=== PATIENT | male | born 1935 | race Caucasian/White ===

== ENCOUNTER → 2023-10-09 | Outpatient (REF) | payer OTHER ==
[2023-10-09 18:37] LABS: PERCENT SATURATION 27.8 % (19.7-50.0)
== END ==
LOC: M LAB REF 17:06
PROVIDERS: ATTEND Internal Medicine Nephrology
DX: D50.9 Iron deficiency anemia, unspecified (principal)

== ENCOUNTER 2023-10-22 21:06 | Emergency (ER) | payer MEDICARE ==
[~2023-10-22] VITALS: Ht 167.6 cm; Wt 62.5 kg
[2023-10-22 21:44] LABS: BASO % 0.3 % (0.0-1.0); EOS # 0.2 10^3/uL (0.0-0.5); EOS % 3.8 % (0.0-3.0); HEMATOCRIT 34.8 % (42.0-52.0); HEMOGLOBIN 11.3 g/dl (13.5-17.5); LYMPH # 1.6 10^3/uL (1.5-5.0); LYMPH % 25.7 % (24.0-44.0); MEAN CORPUSCULAR HEMOGLOBIN 32.2 pg (27.0-33.0); MEAN CORPUSCULAR HGB CONC 32.5 g/dl (32.0-36.5); MEAN CORPUSCULAR VOLUME 99.1 fl (80.0-96.0); MONO # 0.7 10^3/uL (0.0-0.8); MONO % 12.1 % (2.0-8.0); NEUTROPHILS # 3.5 10^3/uL (1.5-8.5); NEUTROPHILS % 57.8 % (36.0-66.0); PLATELET COUNT, AUTOMATED 324 10^3/uL (150-450); RED BLOOD COUNT 3.51 10^6/uL (4.30-6.10)
[2023-10-22 22:12] LABS: LIPASE 117 U/L (12-53)
[2023-10-22 22:14] LABS: ALBUMIN 3.6 G/DL (3.2-5.2); ALKALINE PHOSPHATASE 48 U/L (46-116); ALT/SGPT 37 U/L (7.0-40); AST/SGOT 46 U/L (<34); BILIRUBIN,DIRECT 0.2 MG/DL (<0.4); BILIRUBIN,TOTAL 0.4 MG/DL (0.3-1.2); BLOOD UREA NITROGEN 35 MG/DL (9-23); CALCIUM LEVEL 8.9 MG/DL (8.3-10.6); CARBON DIOXIDE LEVEL 24 MMOL/L (20-31); CHLORIDE LEVEL 107 MMOL/L (98-107); CREATININE FOR GFR 1.26 MG/DL (0.70-1.30); GLOMERULAR FILTRATION RATE 57.9 (>35); GLUCOSE, FASTING 115 MG/DL (74-106); POTASSIUM SERUM 4.1 MMOL/L (3.5-5.1); SODIUM LEVEL 136 MMOL/L (136-145); TOTAL PROTEIN 7.1 G/DL (5.7-8.2)
[2023-10-23] MEDS ORDERED: ISOVUE-370 76% 100ML VIAL As Ordered ONE (03:02)
[2023-10-23 03:36] LABS: PROCALCITONIN <0.04 ng/ml
[2023-10-23 03:54] LABS: CK-MB VALUE MASS < 1.0 NG/ML (<3.6)
[2023-10-23 03:57] LABS: CPK CREATINE PHOSPHOKINASE 56 U/L (46-171); MB/CK RELATIVE INDEX 1.78 (< OR =4)
[2023-10-23] MEDS ORDERED: ONDANSETRON 4MG ORAL DISINTEGRATING TAB PO PRN (07:20)
[2023-10-23] MEDS ORDERED: SENOKOT S TAB PO PRN (07:20)
[2023-10-23] MEDS ORDERED: ACETAMINOPHEN TAB 650MG DOSE (2X325MG) PO PRN (07:20)
[2023-10-23] MEDS ORDERED: COMBIVENT RESPIMAT 100-20MCG INHALER 4GM INH PRN (07:20)
[2023-10-23] MEDS ORDERED: MIRALAX *UNIT DOSE* 17GM PACKET PO PRN (07:20)
[2023-10-23] MEDS ORDERED: CO Q100C10 PO (07:51)
[2023-10-23] MEDS ORDERED: FENO200C24 PO (07:51)
[2023-10-23] MEDS ORDERED: ISOS1TAB35 PO (07:51)
[2023-10-23] MEDS ORDERED: OMEP40CA5 PO (07:51)
[2023-10-23] MEDS ORDERED: OMEG10002 PO (07:51)
[2023-10-23] MEDS ORDERED: VITA400C53 PO (07:51)
[2023-10-23] MEDS ORDERED: PRIM50TA6 PO (07:51)
[2023-10-23] MEDS ORDERED: ATOR40TA75 PO (07:51)
[2023-10-23] MEDS ORDERED: ASPI325T57 PO (07:51)
[2023-10-23] MEDS ORDERED: THERTAB52 PO (07:51)
[2023-10-23] MEDS ORDERED: FOLI800C PO (07:51)
[2023-10-23] MEDS ORDERED: SOLI5TAB PO (07:51)
[2023-10-23] MEDS ORDERED: METO1TAB32 PO (07:51)
[2023-10-23] MEDS ORDERED: NITR4TASL SL (07:53)
[2023-10-23] MEDS ORDERED: FENO200C23 PO (07:55)
[2023-10-23] MEDS ORDERED: HOME MED LIST COMPLETE! XX SCH (07:55)
[2023-10-23] MEDS: amLODIPine 5 MG TAB PO ONE (08:15)
[2023-10-23] MEDS ORDERED: ISOSORBIDE DIN. (ISORDIL) 30 MG TAB PO ONE (09:05)
[2023-10-23] MEDS: CARVedilol 3.125 MG TAB PO SCH (10:16)
[2023-10-23] MEDS: ISOSORBIDE DIN. (ISORDIL) 30 MG TAB PO SCH (10:17)
[2023-10-23] MEDS ORDERED: NITROGLYCERIN 0.4MG SUBL TABLET SL PRN (14:40)
[2023-10-23] MEDS: ASPIRIN 325 MG TAB PO SCH (16:35)
[2023-10-23 16:36] VITALS: BP 122/65
[2023-10-23] MEDS: ATORVASTATIN 20 MG TAB PO SCH (16:36)
[2023-10-23] MEDS: ISOSORBIDE MON. (IMDUR) 30MG XR TAB PO SCH (16:36)
[2023-10-23] MEDS: OMEPRAZOLE 20MG CAP PO SCH (16:36)
[2023-10-23] MEDS: SOLIFENACIN 5 MG TAB PO SCH (16:37)
[2023-10-23] MEDS: METOPROLOL SUCC *XL* 12.5MG PER 1/2 TAB (TopROL *XL*) PO SCH (16:37)
[2023-10-23] MEDS: SUCRALFATE SUSP 1GM/10ML UD PO SCH (18:20)
[2023-10-23 19:34] VITALS: BP 100/55; TEMP 97.5; O2SAT 100
[2023-10-23] MEDS ORDERED: PRIMIDONE 50MG TAB PO SCH (21:00)
[2023-10-23] MEDS ORDERED: OMEGA-3 1000MG CAPSULE PO SCH (21:00)
[2023-10-23] MEDS ORDERED: amLODIPine 5 MG TAB PO SCH (21:00)
[2023-10-24] MEDS ORDERED: FENOFIBRATE 145MG TABLET (TRICOR) PO SCH (09:00)
== END 2023-10-23 19:55 | disposition home or self-care (01) ==
LOC: M ED 21:06
DX: R53.1 Weakness (principal); R63.0 Anorexia; I71.43 Infrarenal abdominal aortic aneurysm, without rupture; K40.90 Unilateral inguinal hernia, without obstruction or gangrene, not specified as recurrent; I49.8 Other specified cardiac arrhythmias; I10 Essential (primary) hypertension; R91.1 Solitary pulmonary nodule; N40.0 Benign prostatic hyperplasia without lower urinary tract symptoms; J44.9 Chronic obstructive pulmonary disease, unspecified; D64.9 Anemia, unspecified; Z95.0 Presence of cardiac pacemaker; Z88.8 Allergy status to other drugs, medicaments and biological substances; Z79.82 Long term (current) use of aspirin; Z79.02 Long term (current) use of antithrombotics/antiplatelets; Z79.83 Long term (current) use of bisphosphonates; Z79.899 Other long term (current) drug therapy
CPT/HCPCS: 36415; 71250; 74176; 80048; 80076; 81001; 82550; 82553; 83605; 83690; 84145; 84484; 85025; 87040; 87486; 87581; 87633; 87798; 93005; 97165; 97530; 99284; Q9967

== ENCOUNTER 2023-10-26 12:20 | Outpatient (CLI) | payer MEDICARE ==
[~2023-10-26] VITALS: Ht 172.7 cm; Wt 59.0 kg
[~2023-10-26 12:20] MED LIST: ALBUTEROL SULFATE 2.5MG/0.5ML INH NEB SOLN INH PRN; ASPI325T57 PO; ATOR40TA75 PO; CO Q100C10 PO; EPINEPHrine INJ 1 MG/ML 1ML AMP IM PRN; FENO200C23 PO; FENO200C24 PO; FOLI800C PO; IRON SUCROSE 25 MG in NS 23.75 ML IV ONE; IRON SUCROSE 375 MG in NS 250 ML IV ONE; ISOS1TAB35 PO; METO1TAB32 PO; NITR4TASL SL; NS 1,000 ML IV SCH; OMEG10002 PO; OMEP40CA5 PO; PRIM50TA6 PO; SOLI5TAB PO; THERTAB52 PO; VITA400C53 PO; diphenhydrAMINE 50MG/ML VIAL IV PRN; methylPREDNISolone 125MG 2ML VIAL IV PRN
[2023-10-26 12:30] VITALS: BP 116/62; O2SAT 98
[2023-10-26] MEDS: IRON SUCROSE 400 MG in NS 250 ML OVER 2.5 HRS IV ONE (13:14)
== END 2023-10-26 16:20 ==
LOC: M INFU 12:20
PROVIDERS: ATTEND Internal Medicine Nephrology
DX: E61.1 Iron deficiency (principal); Z88.8 Allergy status to other drugs, medicaments and biological substances
CPT/HCPCS: 96365; 96366; J1756

== ENCOUNTER 2023-11-09 12:10 | Outpatient (CLI) | payer MEDICARE ==
[~2023-11-09 12:10] MED LIST changes: -IRON SUCROSE 25 MG in NS 23.75 ML IV ONE; -IRON SUCROSE 375 MG in NS 250 ML IV ONE
[2023-11-09 12:20] VITALS: BP 100/55; O2SAT 98
[2023-11-09] MEDS: IRON SUCROSE 400 MG in NS 250 ML OVER 2.5 HRS IV ONE (12:20)
[2023-11-09 13:00] VITALS: BP 105/58; O2SAT 94
[2023-11-09 14:00] VITALS: BP 117/64; O2SAT 94
[2023-11-09 14:55] VITALS: BP 138/65; O2SAT 97
== END 2023-11-09 15:05 ==
LOC: M INFU 12:10
PROVIDERS: ATTEND Internal Medicine Nephrology
DX: E61.1 Iron deficiency (principal); Z88.8 Allergy status to other drugs, medicaments and biological substances
CPT/HCPCS: 96365; 96366; J1756